=== PATIENT | female | born 1950 | race Two or more races ===

== ENCOUNTER 2019-06-05 07:05 | Day surgery (SDC) | payer OTHER ==
[2019-06-04 10:40] LABS: Absolute Lymphocytes (CBC) 2.9 K/uL (0.7-4.9); Basophils % 0.4 % (0-1.3); Eosinophils % 1.9 % (0-4.4); Hematocrit 46.3 % (36.0-45.0); Lymphocytes % 48.2 % (15.3-44.8); MPV 8.6 fL (7.6-11.3); Monocytes % 6.5 % (3.3-12.3); RBC Red Blood Cell Count 5.67 M/uL (3.86-4.86)
--- NOTE | 2019-06-04 10:47 | RAD REPORT ---
EXAM DESCRIPTION: Qian Hinkle And Joselin (2 Views)06/04/2019 9:48 am CLINICAL HISTORY: Preop for heart catheterization COMPARISON: January 2018 FINDINGS: The lungs appear clear of acute infiltrate. The heart is mildly enlarged. Pacemaker leads are in place. IMPRESSION: No acute abnormalities displayed
[2019-06-04 10:53] LABS: Protime INR 0.9
[2019-06-04 10:57] LABS: BUN Blood Urea Nitrogen 7 mg/dL (7-18); Bicarbonate 32 mmol/L (21-32); Glucose Level 125 mg/dL (74-106); Potassium 4.4 mmol/L (3.5-5.1); Sodium Level 143 mmol/L (136-145)
[2019-06-04 13:08] LABS: Blood Morphology Comment NOT SEEN (NOT SEEN); Platelet Estimate ADEQ
--- OUTSIDE RECORDS SUMMARY | 2019-06-05 07:08 | XMS REPORT | Clinical Summary ---
:1950 Author Organization [facility] Address [address] [place] [address] Care Team Providers Name Role Phone Asked, No Pcp Primary Care Provider Unavailable Allergies No Known Allergies Medications Medication Sig Dispensed Refills Start Date End Date Status metFORMIN (GLUCOPHAGE) Take 500 mg by 0 01/16/2018 Active 500 mg tablet mouth 2 (two) times a day. rivaroxaban (XARELTO) Take 20 mg by 0 Active 20 mg tablet mouth daily. Active Problems Problem Noted Date SSS (sick sinus syndrome) 02/10/2018 Social History Tobacco Use Types Packs/Day Years Used Date Never Smoker Smokeless Tobacco: Never Used Alcohol Use Drinks/Week oz/Week Comments No Sex Assigned at Date Recorded Not on file Job Start Date Occupation Industry Not on file Not on file Not on file Travel History Travel Start Travel End No recent travel history available. Last Filed Vital Signs Not on file Plan of Treatment Health Maintenance Due Date Last Done Comments BREAST CANCER SCREENING 2001 COLONOSCOPY SCREENING 2001 SHINGLES VACCINES (#1) 2001 65+ PNEUMOCOCCAL VACCINE (1 of 2 - PCV13) 2016 INFLUENZA VACCINE 06/28/2019 Implants Implanted Type Area Computer System Validation Specialist Device Shelf Model / Identifier Expiration Serial / Date Lot Accolade Mri Pacemaker - [id number] Cardiac N/A: [employer] 06/13/2019 [id number] / Implanted: 02/10/2018 (Quantity not on file) Pacemaker N/A [employer]- CRM [id number] / Generators [id number] OparaevNeoDiagnostix Pacing Lead Is-1 Bipolar 59cm - [id number] Cardiac Pacing N/A: [employer] 11/25/2019 7742 / Implanted: 02/10/2018 (Quantity not on file) Leads or N/A [employer]- CRM [id number] / Electrodes or [id number] Accessories 52cm Ingevity Mri Active Fixation Pacing Lead - [id number] Cardiac Pacing N/A : [employer] 2020 7741 / Implanted: 02/10/2018 (Quantity not on file) Leads or N/A [employer]- CRM [id number] / Electrodes or [id number] Accessories Results Not on fileafter 06/04/2018 Insurance Payer Benefit Plan / Subscriber ID Effective Dates Phone Address Type Group MEDICARE MEDICARE PART A AND xxxxxxxxxx [facility] [place] [place] B t AETNA AETNA [facility] xxxxxxxxx 2017-Tracy german Advance Directives Patient has advance care planning documents on file. For more information, please contact:Celso Herrera[address] [place] [address]
[2019-06-05] MEDS ORDERED: NA CHLORIDE 0.9% 500 ML ONE (07:46)
[2019-06-05] MEDS ORDERED: HEPA 1000U/500MLS 1,000 UNIT/500 ML BAG IV ONE (08:25)
[2019-06-05] MEDS ORDERED: MIDAZOLAM HCL 2 MG/2 ML INJ ONE (08:40)
[2019-06-05] MEDS ORDERED: FENTANYL CITR 100 MCG/2 ML ONE (08:40)
[2019-06-05] MEDS ORDERED: NA CHLORIDE 0.9% 0 ML ONE (08:41)
[2019-06-05] MEDS ORDERED: ATROPINE SULF 1 MG/10 ML SYR IV ONE (08:41)
[2019-06-05] MEDS ORDERED: FLUMAZENIL 0.1 MG/ML (5 mL VIAL) IV ONE (08:48)
--- NOTE | 2019-06-05 13:01 | OP ---
Surgeon: Chicho Schwarz MD Legal Librarian: Vanessa Esquivel. Procedure: Left heart catheterization with selective coronary artery. 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 Indication: Unstable angina. Procedure In Detail: Six-Portuguese sheath introduced in the right common femoral artery. A 4 mg of IV sedation was given with Versed. Angio-Seal was used to close the case. Angiography in the right com mon femoral artery area was normal. Judah catheter was used to do the heart catheterization. She was found to have normal coronaries, normal left main, LAD, circumflex and RCA. She is codominant. Complications: None. Blood Loss: 5 cc. Postoperative Diagnoses: Unstable angina, normal heart catheterization as planned for medical therap y. Total conscious sedation was 30 minutes. NGA/DELFINA Voice ID: [id number] Report ID: [id number]
== END 2019-06-05 11:10 | disposition home or self-care (01) ==
LOC: OR 07:05 → CCL 11:10
DX: I20.0 Unstable angina (principal); I49.5 Sick sinus syndrome; Z95.0 Presence of cardiac pacemaker; I48.91 Unspecified atrial fibrillation; I10 Essential (primary) hypertension; E78.5 Hyperlipidemia, unspecified; E11.9 Type 2 diabetes mellitus without complications; E66.9 Obesity, unspecified; Z68.29 Body mass index [BMI] 29.0-29.9, adult
CPT/HCPCS: 85025; 80048; 36415; 85610; 82962 ×2; 85730; 71046; 93454; C1893; C1760; J2250; J3010; J0583